=== PATIENT | male | born 1960 | race Caucasian/White ===

== ENCOUNTER → 2021-07-27 09:42 | Outpatient (CLI) | payer OTHER, SELFPAY ==
[2021-07-27 11:26] LABS: Prostate Specific Antigen 5.91 ng/mL (0.10-4.00)
== END ==
PROVIDERS: Referring Provider Specialist; Visit Provider Specialist
DX: R97.20 Elevated prostate specific antigen [PSA] (principal); N40.1 Benign prostatic hyperplasia with lower urinary tract symptoms; N13.8 Other obstructive and reflux uropathy; N52.9 Male erectile dysfunction, unspecified
CPT/HCPCS: 36415; 51798; 81002; 84153

== ENCOUNTER → 2024-04-12 10:59 | Outpatient (CLI) | payer OTHER, SELFPAY ==
--- NOTE | 2024-04-12 11:00 | DI.MRI.S_ITS ---
PROCEDURE: MR PELVIC PROSTATE PROTOCOL INDICATIONS: Elevated and rising PSA TECHNIQUE: Coronal HASTE, axial T1 FSE with fat saturation, 3-plane nonbreath-hold T2 FSE. After the administration of contrast, dynamic axial, delayed axial and coronal VIBE or 2-D FLASH with fat saturation through the pelvis. Diffusion weighted imaging and ADC was performed. COMPARISON: None. FINDINGS: Image quality: Diffusion weighted and dynamic contrast enhanced images are diagnostic. Prostate: Gland size is 4.8 x 4.1 x 3.8 cm; ellipsoid gland volume is 39 mL. Numerous BPH nodules. No significant intrinsic T1 hyperintense foci to suggest hemorrhage. No significant areas of ADC hypointensity in the peripheral zone. No suspicious foci of the T2 hypointense signal in the transitional zone. No PI-RADS 4 or 5 observations. Genitourinary system: Bladder wall thickness is normal. Distal ureters are non distended. Bowel and peritoneum: No pathologic free pelvic fluid. Inferior colon and small bowel loops are normal in caliber. Diverticulosis. Normal appendix. Nodes and vessels: No pelvic or inguinal adenopathy by size criteria. Iliac vessels are normal in caliber. Soft tissues: No inguinal hernias. Bones: Marrow demonstrates normal overall signal, without lesions to suggest metastases. IMPRESSION: 1. Prominent prostate gland. Multiple BPH nodules. 2. No PI-RADS 4 or 5 observations. 3. No enlarged lymph nodes. Dictated by: Don Chester M.D. on 04/14/2024 at 10:55 Approved by: Don Chester M.D. on 04/14/2024 at 11:03
== END ==
PROVIDERS: PCP Family Medicine; Referring Provider Urology; Visit Provider Urology
DX: N40.2 Nodular prostate without lower urinary tract symptoms (principal); K57.90 Diverticulosis of intestine, part unspecified, without perforation or abscess without bleeding; R97.20 Elevated prostate specific antigen [PSA]
CPT/HCPCS: 72197; A9579